=== PATIENT | male | born 1975 | race African-American/Black ===

== ENCOUNTER 2017-06-27 20:33 | Observation (INO) | payer BC ==
[~2017-06-27] VITALS: Ht 180.3 cm; Wt 88.7 kg
[2017-06-27 21:41] LABS: BASOPHIL COUNT 0.1 K/uL (0-0.1); EOSINOPHIL (%) 0.1 % (0-5); HEMATOCRIT 47.1 % (38.0-50.0); IMMATURE GRANULOCYTE (%) 0.6 % (0.0-0.7); IMMATURE GRANULOCYTE COUNT 0.1 K/uL; INSTRUMENT ABS NEUTROPHIL CT 7.5 K/uL; LYMPHOCYTE COUNT 1.1 K/uL (1.0-2.8); MCH 21.5 PG (29.0-34.0); MCHC 30.6 G/DL (30.0-36.0); MCV 70.4 FL (86-99); MEAN PLAT.VOLUME 9.5 uM^3 (9.0-12.4); MONOCYTE COUNT 0.7 K/uL (0-0.8); NEUTROPHIL (%) 79.8 % (45-76); NEUTROPHIL COUNT 7.5 K/uL (1.8-6.4); PLATELET COUNT 276 K/uL (156-360); RBC DIS.WIDTH-CV 17.2 % (11.8-14.6); RED BLOOD COUNT 6.69 M/uL (4.00-5.50); WHITE BLOOD COUNT 9.5 K/uL (4.1-10.2)
[2017-06-27 21:42] LABS: CHLORIDE 103 mEq/L (99-109); POTASSIUM 4.7 mEq/L (3.7-5.4); SODIUM 139 mEq/L (136-147)
[2017-06-27 21:43] LABS: MAGNESIUM 2.5 mg/dL (1.3-2.7)
[2017-06-27 21:43] LABS: ADD MIUA? YES; BILIRUBIN NEGATIVE; BLOOD NEGATIVE; COLOR AMBER ((YELLOW)); GLUCOSE (STRIP) NEGATIVE; KETONES NEGATIVE; LEUKOCYTES NEGATIVE; NITRITE NEGATIVE; PROTEIN (STRIP) 100; SPECIFIC GRAVITY 1.029 (1.000-1.030); UROBILINOGEN 0.2 MG/DL (0.2-1.0)
[2017-06-27 21:44] LABS: GLUCOSE 79 mg/dL (70-99)
[2017-06-27 21:45] LABS: ANION GAP 11 MEQ/L (2-14)
[2017-06-27 21:48] LABS: GFR ESTIMATE (CALCULATED) > 59 mL/min/
[2017-06-27 21:49] LABS: UREA NITROGEN (BUN) 25 mg/dL (9-23)
[2017-06-27 21:53] LABS: BACTERIA RARE /HPF; EPITHELIAL CELLS RARE /HPF; HYALINE CASTS 40-50 /LPF; MUCUS 4+ /LPF; RED BLOOD CELLS 0-5 /HPF (0-5); UCUL ADDED? NO; WHITE BLOOD CELLS 0-5 /HPF (0-5)
[2017-06-27 21:54] LABS: TROP-I INTERPRETATION NEGATIVE; TROPONIN-I < 0.01 ng/mL (0.0-0.30)
[2017-06-27 22:42] LABS: CREATINE KINASE 1144 IU/L (1-294)
[2017-06-28 07:58] VITALS: BP 111/68
[2017-06-28 11:42] VITALS: BP 118/70
[2017-06-28 12:15] LABS: POTASSIUM 3.9 mEq/L (3.7-5.4); SODIUM 140 mEq/L (136-147)
[2017-06-28 12:16] LABS: GLUCOSE 69 mg/dL (70-99)
[2017-06-28 12:18] LABS: ANION GAP 3 MEQ/L (2-14)
[2017-06-28 12:19] LABS: CHLORIDE 114 mEq/L (99-109)
[2017-06-28 12:21] LABS: UREA NITROGEN (BUN) 14 mg/dL (9-23)
[2017-06-28 12:33] LABS: GFR ESTIMATE (CALCULATED) > 59 mL/min/
[2017-06-28 12:37] LABS: CREATINE KINASE 5397 IU/L (1-294)
[2017-06-28 15:50] VITALS: BP 111/62
[2017-06-28 17:14] VITALS: BP 113/73
[2017-06-29 00:38] VITALS: BP 113/68
[2017-06-29 04:15] VITALS: BP 106/67
[2017-06-29 07:18] VITALS: BP 117/56
[2017-06-29 08:10] LABS: HEMATOCRIT 36.8 % (38.0-50.0); MCH 22.4 PG (29.0-34.0); MCHC 31.3 G/DL (30.0-36.0); MCV 71.7 FL (86-99); MEAN PLAT.VOLUME 10.1 uM^3 (9.0-12.4); PLATELET COUNT 217 K/uL (156-360); RBC DIS.WIDTH-CV 16.1 % (11.8-14.6); RBC DIS.WIDTH-SD 41.1 % (39-53); WHITE BLOOD COUNT 4.3 K/uL (4.1-10.2)
[2017-06-29 08:14] LABS: RED BLOOD COUNT 5.13 M/uL (4.00-5.50)
[2017-06-29 08:37] LABS: ANION GAP 3 MEQ/L (2-14); CHLORIDE 111 MEQ/L (99-109); GFR ESTIMATE (CALCULATED) > 59 mL/min/; POTASSIUM 4.2 MEQ/L (3.7-5.4); SAMPLE HEMOLYSIS CHECK 0; SAMPLE ICTERIC CHECK 0; SAMPLE LIPEMIA CHECK 0; SODIUM 141 MEQ/L (136-147); UREA NITROGEN (BUN) 10 mg/dL (9-23)
[2017-06-29 08:46] LABS: CREATINE KINASE 3233 IU/L (1-294); GLUCOSE 93 mg/dL (70-99)
== END 2017-06-29 12:05 | disposition home or self-care (01) ==
LOC: EME 20:33 → 5EAST 06-28 00:16 → EDOF 06-28 00:16 → 5EAST 06-28 00:16 → ENRESERV 06-28 00:25 → EDOF 06-28 07:40 → ENRESERV 06-28 15:26 → 5EAST 06-28 16:54 → ENPENDDIS 06-29 → 5EAST 06-29 09:41
PROVIDERS: Emergency Medicine; Physician Assistant Medical
DX: M62.82 Rhabdomyolysis (principal); E86.0 Dehydration; N17.9 Acute kidney failure, unspecified; Z82.49 Family history of ischemic heart disease and other diseases of the circulatory system
CPT/HCPCS: 80048; 81003; 82550; 83735; 84484; 85025; 85027; 99281; 99285; G0378; J7030